=== PATIENT | male | born 1965 | race Caucasian/White ===

== ENCOUNTER 2018-04-29 07:59 | Day surgery (SDC) | payer BC, OTHER ==
[~2018-04-29 07:59] MED LIST: Lactated Ringers 1,000 ML IV SCH; Lidocaine 1% 20 ML MDV ONE
[2018-04-29] MEDS ORDERED: ceFAZolin 2 GM in Premix Bag 1 BAG IV SCH (08:00)
[2018-04-29] MEDS ORDERED: Acetaminophen/HYDROcodone 325-5 MG Tab PO PRN (08:00)
--- NOTE | 2018-04-29 08:56 | PCM.PREANE ---
Preanesthetic Assessment - Anesthesia/Transfusion/Family Hx Anesthesia History: Prior Anesthesia Without Reaction Family History of Anesthesia Reaction: No Transfusion History: No Prior Transfusion(s) - Review of Systems General: No Symptoms Pulmonary: No Symptoms Cardiovascular: No Symptoms Gastrointestinal: No Symptoms Neurological: No Symptoms Other: Reports: None - Physical Assessment NPO Status Date: 04/28/18 Height: 5 ft 9 in Weight: 117.934 kg ASA Class: 2 Mental Status: Alert & Oriented x3 Airway Class: Mallampati = 2 ROM/Head Extension: Full Lungs: Clear to Auscultation, Normal Respiratory Effort Cardiovascular: Regular Rate, Regular Rhythm - Allergies Allergies/Adverse Reactions: Allergies Allergy/AdvReac Type Severity Reaction Status Date / Time No Known Allergies Allergy Verified 04/24/18 08:05 - Blood Blood Available: No - Anesthesia Plan Pre-Op Medication Ordered: None - Acknowledgements Anesthesia Type Planned: General Anesthesia Pt an Appropriate Candidate for the Planned Anesthesia: Yes Alternatives and Risks of Anesthesia Discussed w Pt/Guardian: Yes Pt/Guardian Understands and Agrees with Anesthesia Plan: Yes Additional Comments: PMH: htn, hld PLAN: ga-lma PreAnesthesia Questionnaire HEENT History: Reports: Allergic Rhinitis, Other (See Below) Other HEENT History: top denture, reading glasses Cardiovascular History: Reports: High Cholesterol, Hypertension Respiratory History: Reports: SOB Other Respiratory History: SOB with exertion Gastrointestinal History: Reports: None Genitourinary History: Reports: None Musculoskeletal History: Reports: Osteoarthritis Neurological History: Reports: None Psychiatric History: Reports: None Endocrine/Metabolic History: Reports: Obesity/BMI 30+ Hematologic History: Reports: None Immunologic History: Reports: None Oncologic (Cancer) History: Reports: None Dermatologic History: Reports: None - Infectious Disease History Infectious Disease History: Reports: Chicken Pox - Past Surgical History Head Surgeries/Procedures: Reports: None Musculoskeletal Surgical History: Reports: Arthroscopic Knee - SUBSTANCE USE Smoking Status *Q: Former Smoker Recreational Drug Use History: No - HOME MEDS Home Medications: Home Meds Fenofibrate 160 mg PO BEDTIME 01/24/18 [History] Losartan [Cozaar] 100 mg PO BEDTIME 01/24/18 [History] Aspirin [[place]con Aspirin] 81 mg PO BEDTIME 04/24/18 [History] Meloxicam 7.5 mg PO BEDTIME 04/24/18 [History] [place]-3/DHA/Epa/Fish Oil [Fish Oil 1,000 mg Softgel] 1,000 mg PO BEDTIME [History] Vitamin B Complex 1 tab PO BEDTIME 04/24/18 [History] Vitamin E 1,000 units PO BEDTIME 04/24/18 [History] - CURRENT (IN HOUSE) MEDS Current Meds: Current Medications Hydrocodone Bitart/Acetaminophen ([place] 325-5 Mg) 1 - 2 tab PO Q4H PRN PRN Reason: Pain Cefazolin Sodium/Dextrose 2 gm (/ Premix) 50 mls @ 100 mls/hr IV ONCALL BHAVESH Lactated Ringer's (Ringers, Lactated) 1,000 mls @ 100 mls/hr IV ASDIRECTED BHAVESH Discontinued Medications Lidocaine HCl (Xylocaine 1%) Confirm Administered Dose 20 ml .ROUTE .STK-MED ONE Stop: 04/29/18 07:34
[2018-04-29] MEDS ORDERED: Propofol 200 MG/20 ML SDV ONE (10:07)
[2018-04-29] MEDS ORDERED: Midazolam 1 MG/ML 2 ML SDV ONE (10:07)
[2018-04-29] MEDS ORDERED: fentaNYL 250 MCG/5 ML SDV ONE (10:07)
[2018-04-29] MEDS ORDERED: ceFAZolin 1 GM Vial ONE (11:18)
[2018-04-29] MEDS ORDERED: diphenhydrAMINE 50 MG/ML SDV ONE (11:20)
--- NOTE | 2018-04-29 11:42 | PCM.OPNOTE ---
- General Post-Op/Procedure Note Date of Surgery/Procedure: 04/29/18 Operative Procedure(s): R knee scope with PLM/PMM Post-Op Diagnosis: DJD right knee. Right knee medial/lateral meniscus tear Anesthesia Technique: General LMA Primary Surgeon: Sarika Hebert Fishing Tool Operator: Cayla Faye in mLs: 5 Condition: Good Free Text/Narrative:: tt=15 min #[id number]
[2018-04-29] MEDS ORDERED: HYDROmorphone 2 MG/ML SDV IVPUSH ONE (11:55)
[2018-04-29] MEDS ORDERED: HYDROmorphone 2 MG/ML Syringe ONE (12:05)
--- NOTE | 2018-04-29 12:25 | PCM.POSTAN ---
POST ANESTHESIA ASSESSMENT - MENTAL STATUS Mental Status: Alert, Oriented - RESPIRATORY Respiratory Status: Respiratory Rate WNL, Airway Patent, O2 Saturation Stable - CARDIOVASCULAR CV Status: Pulse Rate WNL, Blood Pressure Stable - GASTROINTESTINAL GI Status: No Symptoms - PAIN Pain Score: 0 - OBSERVATIONS Free Text/Narrative:: The patient is sitting up talking and smiling. He appears to be in no acute distress. There were no apparent anesthetic complications at this time. Discharge home per criteria.
--- NOTE | 2018-04-29 13:01 | PCM48HPAN ---
Post Anesthesia Note - EVALUATION WITHIN 48HRS OF ANESTHETIC Vital Signs in Normal Range: Yes Patient Participated in Evaluation: Yes Respiratory Function Stable: Yes Airway Patent: Yes Cardiovascular Function Stable: Yes Hydration Status Stable: Yes Pain Control Satisfactory: Yes Nausea and Vomiting Control Satisfactory: Yes Mental Status Recovered: Yes Resp Rate: 16
--- NOTE | 2018-04-29 13:03 | OR ---
SURGEON: Sarika Hebert MD DATE OF PROCEDURE: 04/29/2018 PREOPERATIVE DIAGNOSES: 1. Degenerative joint disease, right knee. 2. Right knee medial meniscus tear. POSTOPERATIVE DIAGNOSES: 1. Degenerative joint disease, right knee. 2. Right knee medial meniscus tear. 3. Right knee lateral meniscus tear. PROCEDURES: Right knee arthroscopy with partial medial and lateral meniscectomy. BODY HANGER: Cayla Faye RN. ANESTHESIA: General. ESTIMATED BLOOD LOSS: 5 mL. TOURNIQUET TIME: 15 minutes. COMPLICATIONS: None. DVT PROPHYLAXIS: Not indicated. IMPLANTS USED: None. BRIEF HISTORY: Jose is a 52-year-old male who has had complaint of progressive right knee pain. He did have an MRI, which did confirm a tear of the medial meniscus along with degenerative changes. Due to his lack of response to conservative treatment, I did recommend surgical intervention. The risks and goals of the procedure were discussed with the patient and were documented preoperatively. He agreed to proceed. DESCRIPTION OF PROCEDURE: The patient was properly identified and brought to the operating room. He was transferred from the OR cart and placed on the operating table in supine position. General anesthesia was administered. After adequate anesthesia was obtained, a well-padded tourniquet was applied to the right lower extremity. The right lower extremity was then prepped in standard fashion using ChloraPrep solution. It was then sterilely draped. A time-out was performed to ensure correct site and procedure. Preoperative antibiotics were given. The surgical site had been marked preoperatively. An Esmarch was used to exsanguinate the right lower extremity and the tourniquet was inflated to 250 mmHg. A lateral portal arthrotomy was established. Blunt trocar and cannula were introduced into the suprapatellar pouch. Camera, inflow, and outflow were assembled. No significant synovitis was noted. The patellofemoral joint was visualized. Extensive grade 3 degenerative changes were noted along the undersurface of the patella. Grade 2 degenerative changes were noted along the trochlear groove. The patella appeared to track centrally. I then extended down the lateral and medial gutter. No loose bodies were identified. I then entered the medial compartment. A medial portal arthrotomy was established and a blunt probe was inserted. He was found to have a degenerative radial tear along the posterior horn of the medial meniscus. Using a combination of biters and shaver, this was resected back to a stable remnant. It was again probed and found to be stable. The joint surfaces were then inspected. 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 Grade 2 to grade 3 degenerative changes were noted along the medial tibial plateau. A chondroplasty of the medial femoral condyle was performed to remove any loose cartilage flaps. I then entered the notch. Both the ACL and PCL were visualized, probed, and found to be intact. Finally, I entered the lateral compartment. The meniscus was probed. Extensive degenerative tearing was noted along the central portion of the meniscus. Again, using a combination of biters and shaver, this was resected back to a stable remnant. It was again probed and found to be stable. Grade 2 degenerative changes were noted along the lateral tibial plateau as well as lateral femoral condyle. I then re-entered the patellofemoral joint. A chondroplasty of the patella was performed. Instruments were then removed from the knee. The portal sites were closed with 3-0 nylon. 1% Lidocaine was injected along the portal tracts. Xeroform gauze was placed over the wound and a bulky dressing was applied. The tourniquet was then deflated. He was awakened from his anesthetic and transferred back to the operating room cart. He was brought to recovery room in stable condition. All needle and sponge counts were correct. VALDEZ / ROSE /[id number]
== END 2018-04-29 13:10 | disposition home or self-care (01) ==
LOC: MW.SDS 07:59
PROVIDERS: ATTEND Orthopaedic Surgery
DX: M23.221 Derangement of posterior horn of medial meniscus due to old tear or injury, right knee (principal); M23.200 Derangement of unspecified lateral meniscus due to old tear or injury, right knee; M17.11 Unilateral primary osteoarthritis, right knee; M94.261 Chondromalacia, right knee; I10 Essential (primary) hypertension; E66.9 Obesity, unspecified; Z68.38 Body mass index [BMI] 38.0-38.9, adult; E78.00 Pure hypercholesterolemia, unspecified; Z87.891 Personal history of nicotine dependence; Z79.899 Other long term (current) drug therapy
CPT/HCPCS: 29880; J0690; J1200; J2250; J2704; J3010; J7120